=== PATIENT | female | born 1955 | race Caucasian/White ===

== ENCOUNTER 2017-04-03 11:41 | Observation (INO) | payer OTHER ==
[~2017-04-03] VITALS: Ht 167.6 cm; Wt 90.8 kg
[2017-04-03 11:48] VITALS: Ht 167.6 cm; Wt 90.8 kg
[2017-04-03] MEDS ORDERED: PRISTIQ100 MG PO (12:37)
[2017-04-03] MEDS ORDERED: OXYCODONE HYDRO15 MG PO (12:38)
[2017-04-03] MEDS ORDERED: COZAAR100 MG PO (12:38)
[2017-04-03] MEDS ORDERED: ZYRTEC10 MG PO (12:38)
[2017-04-03] MEDS ORDERED: IMITREX50 MG PO (12:39)
[2017-04-03] MEDS ORDERED: HYZAAR1 TA2 PO (12:39)
[2017-04-03] MEDS ORDERED: ZANAFLEX CAPSULE4 MG PO (13:00)
[2017-04-03] MEDS ORDERED: LOSARTAN POTASS1 TA6 PO (13:04)
[2017-04-03 13:15] LABS: BASOPHIL % 0.2 % (0-2); PLATELET COUNT 346 x10^3mcL (130-400); RED CELL DISTRIBUTION WIDTH 13.1 % (11.5-14.5)
[2017-04-03 13:20] LABS: CALCIUM 9.6 mg/dL (8.5-10.1); CARBON DIOXIDE 29.9 mmol/L (21-32); CHLORIDE SERUM 101 mmol/L (98-107); CREATININE SERUM 0.6 mg/dL (0.6-1.0); GFR1 > 60 mL/min; GLUCOSE SERUM 107 mg/dL (74-106); POTASSIUM SERUM 3.3 mmol/L (3.5-5.1); SODIUM SERUM 140 mmol/L (136-145)
[2017-04-03 13:24] LABS: ALBUMIN 4.1 g/dL (3.4-5.0); ALKALINE PHOSPHATASE 88 U/L (46-116); ALT/SGPT 32 U/L (14-59); AST/SGOT 20 U/L (15-37); TOTAL PROTEIN, SERUM 7.7 g/dL (6.4-8.2)
[2017-04-03 15:28] VITALS: BP 151/95
[2017-04-03 15:37] VITALS: BP 151/95
[2017-04-03 15:52] LABS: MAGNESIUM 2.2 mg/dL (1.8-2.4); PHOSPHOROUS 3.7 mg/dL (2.5-4.9)
[2017-04-03 16:27] VITALS: BP 155/86
[2017-04-03 18:27] LABS: UA SPECIFIC GRAVITY <=1.005 (1.005-1.035); microscopic required? YES; urine erythrocyte NEGATIVE (NEGATIVE)
[2017-04-03 18:38] LABS: AMPHETAMINE QUAL UR NONE DETECTED (NEG <=1000)
[2017-04-03 18:43] LABS: T3 TOTAL 1.12 ng/mL
[2017-04-03 18:44] LABS: FREE T4 0.99 ng/dL (0.76-1.46); FREE THYROXINE INDEX 2.8 ug/dL (1.4-4.5); T4(THYROXINE) 8.5 ug/dL (4.7-13.3)
[2017-04-03 20:05] VITALS: BP 115/63
[2017-04-03 21:12] VITALS: BP 133/73
[2017-04-04 04:51] VITALS: BP 115/63
[2017-04-04 06:58] LABS: CALCIUM 9.2 mg/dL (8.5-10.1); CARBON DIOXIDE 30.8 mmol/L (21-32); CHLORIDE SERUM 104 mmol/L (98-107); CREATININE SERUM 0.9 mg/dL (0.6-1.0); GFR1 > 60 mL/min; GLUCOSE SERUM 104 mg/dL (74-106); MAGNESIUM 2.2 mg/dL (1.8-2.4); PHOSPHOROUS 4.8 mg/dL (2.5-4.9); SODIUM SERUM 143 mmol/L (136-145)
[2017-04-04 07:09] LABS: BASOPHIL % 0.6 % (0-2); PLATELET COUNT 296 x10^3mcL (130-400); RED CELL DISTRIBUTION WIDTH 13.3 % (11.5-14.5)
[2017-04-04 08:48] VITALS: BP 134/81
[2017-04-04 13:47] VITALS: BP 126/97
[2017-04-04] MEDS ORDERED: ATIVAN0.5 M1 PO (14:18)
[2017-04-04] MEDS ORDERED: LAC PO (14:25)
[2017-04-04] MEDS ORDERED: LEVOFLOXACIN750 M1 PO (14:25)
[2017-04-04 14:39] VITALS: BP 126/97
== END 2017-04-04 15:50 | disposition home or self-care (01) | DRG 313 ==
LOC: ED 11:41 → DU 14:39
PROVIDERS: Emergency Medicine; Family Medicine
DX: R07.9 Chest pain, unspecified (principal); N39.0 Urinary tract infection, site not specified; K21.9 Gastro-esophageal reflux disease without esophagitis; M94.0 Chondrocostal junction syndrome [Tietze]; J45.909 Unspecified asthma, uncomplicated; F41.9 Anxiety disorder, unspecified; G43.909 Migraine, unspecified, not intractable, without status migrainosus; E78.2 Mixed hyperlipidemia; Z68.32 Body mass index [BMI] 32.0-32.9, adult
CPT/HCPCS: 83880; 84439; 85378; 87804; G0378; J1956; J7030; Q0092

== ENCOUNTER 2017-04-12 11:12 | Emergency (ER) | payer OTHER ==
[~2017-04-12] VITALS: Ht 167.6 cm; Wt 90.7 kg
[~2017-04-12 11:12] MED LIST: ATIVAN0.5 M1 PO; COZAAR100 MG PO; HYZAAR1 TA2 PO; IMITREX50 MG PO; LAC PO; LEVOFLOXACIN750 M1 PO; LOSARTAN POTASS1 TA6 PO; OXYCODONE HYDRO15 MG PO; PRISTIQ100 MG PO; ZANAFLEX CAPSULE4 MG PO; ZYRTEC10 MG PO
[2017-04-12 11:23] VITALS: Ht 167.6 cm; Wt 90.7 kg
[2017-04-12 12:35] VITALS: BP 147/87
== END 2017-04-12 12:35 | disposition home or self-care (01) ==
LOC: ED 11:12
DX: S01.81XA Laceration without foreign body of other part of head, initial encounter (principal); M25.562 Pain in left knee; M25.561 Pain in right knee; I10 Essential (primary) hypertension; M79.7 Fibromyalgia; M19.90 Unspecified osteoarthritis, unspecified site; Z98.890 Other specified postprocedural states; W01.190A Fall on same level from slipping, tripping and stumbling with subsequent striking against furniture, initial encounter; Y93.89 Activity, other specified; Y99.8 Other external cause status; Y92.89 Other specified places as the place of occurrence of the external cause
CPT/HCPCS: J1885